=== PATIENT | female | born 1960 | race Caucasian/White ===

== ENCOUNTER → 2022-08-27 | Outpatient (CLI) | payer MEDICAID, SELFPAY ==
--- NOTE | 2022-08-27 | IMM_PTH ---
PATIENT: RESHMA HERRERA LOC: [facility] U#:[id number] AGE/SX: 62/F ROOM: RE08/27/[address]: Dr. Buddy Stokes MD : 1960 BED: DIS: 08/27/2022 SPEC #: [id number] RECD: 08/30/22 13:12 STATUS: SOURamya REQ #: [id number] LETICIA: 08/27/22 00:[address]: Buddy Stokes DEPT: IMMUNOHISTOCHEMISTRY RECD BY: Awilda Allen ENTERED: 08/30/22 13:15 SP TYPE: IMMUNO OTHR DR: Dr. Lester Bo MD Tissues: Right breast, NOS Procedures: CK8 (initial) SMA (add) CALPONIN-1 (add) CK5-6 (add) E-CAD (add) KI-67 (add) P53 (add) P40 (add) PHYSICIAN & INSTITUTION [address] [address] SPECIMEN INFORMATION: Tissue Source: Right breast Clinical Info: Microcalcifications right UOQ Specimen Number: [id number] #1 CPT code: 06724, 05693 x7 METHODOLOGY: Deparaffinized sections of prefer/formalin-fixed tissue or PAP/DQ stained slides are incubated with monoclonal/polyclonal antibodies/oligonucleotide probes. Localization is made via biotin free immunoperoxidase method. Appropriate controls are performed and reacted as expected. Results on target cell population are indicated in the following table: RESULTS: ANTIBODY / CLONE RESULT Block 1 CK8 (36qqbxS12) positive Calponin-1 (GV198R) positive Actin (1A4) positive CK5-6 (D5 & 1684) positive P40 (BC28) positive P53 (DO-7) negative Ki-67 (30-9) positive, 2% E-Cad (ECH-6) negative These tests were developed and their performance characteristics determined by [facility]. They may not have been cleared or approved by the U.S. Food and Drug Administration. The FDA has determined that such clearance or approval is not necessary. The above immunohistochemical/dualISH markers are ordered and reviewed by the Pathologist. INTERPRETATION: Right breast, stereotactic core biopsy: Consistent with lobular neoplasia. AM:minerva 09/01/2022
--- NOTE | 2022-08-27 11:25 | BRBX_PTH ---
PATIENT: RESHMA HERRERA LOC: [facility] U#:[id number] AGE/SX: 62/F ROOM: RE08/27/[address]: Dr. Buddy Stokes MD : 1960 BED: DIS: 08/27/2022 SPEC #: [id number] RECD: 08/27/22 11:56 STATUS: RAMON REQ #: [id number] LETICIA: 08/27/22 11:[address]: Buddy Stokes DEPT: SURGICAL PATHOLOGY RECD BY: Cata Dia ENTERED: 08/27/22 13:16 SP TYPE: BREAST BX OTHR DR: Dr. Lester Bo MD Tissues: Right breast, NOS Procedures: Surgery Specimen Level IV HEADER OPERATION: Right breast stereotactic needle core biopsy PRE-OP DIAGNOSIS: Microcalcifications right UOQ TISSUE SUBMITTED: Right breast ISCHEMIC TIME: 1 minute FIXATION TIME: 56 hours MICROSCOPIC DIAGNOSIS Right breast, stereotactic core biopsy: Lobular neoplasia with associated microcalcifications. See comment. AM:minerva 08/30/2022 COMMENT Immunohistochemistry ([id number]) supports the above diagnosis. Lobular neoplasia includes lobular carcinoma in situ and atypical lobular hyperplasia. In most foci, a blend of both are present. Foci of milly lobular carcinoma in situ measures approximately 3 millimeters in greatest dimension. / AM:minerva 09/03/2022 This case was reviewed and diagnosis discussed with Dr. Stokes on 09/02/2022. Case has been reviewed in consultation with Dr. Sandoval who concurs with the above diagnosis. IDC:SJ MICROSCOPIC DESCRIPTION Multifocal lobular neoplasia is present in sections of the biopsy. There is no evidence of invasive carcinoma. GROSS DESCRIPTION Received in fixative is one container labeled with the patient's name and designated right breast. The specimen consists of multiple irregular fragments of gong-yellow soft tissue that in aggregate measure 8.5 x 2.5 x 0.2 cm. The specimen is totally submitted in four cassettes. / AM:minerva 08/27/2022 TC:0 CPT: 59684
--- NOTE | 2022-08-27 13:35 | PCM.HP.BLA ---
History and Physical Date of Admission: 08/27/22 HISTORY AND PHYSICAL - BREAST COMPLAINT ? Abby Huerta 1960 ? ? REFERRING PHYSICIAN: Lester Bo MD ? CHIEF COMPLAINT: Mammographic microcalcification found on diagnostic imaging of breast (primary encounter diagnosis) ? HPI: The patient is a 62 year old female with a complaint of an abnormal mammogram. The patient had a mammogram with ultrasound on August 11, 2022 which demonstrated : IMPRESSION: SUSPICIOUS FINDING - BIOPSY SHOULD BE CONSIDERED The multiple clustered heterogeneous calcifications in the right breast are suspicious of malignancy. ?A stereotactic biopsy is recommended. ? The patient denies a history of breast masses. She does perform a self breast exam routinely. She notes no skin changes. She denies nipple discharge. She notes no axillary masses. She notes no family history of breast problems. She notes no significant breast trauma or breast difficulties in the past. ? ? The patient is being seen by me today at the request of Dr. Lester Bo MD for my opinion and advice regarding Mammographic microcalcification found on diagnostic imaging of breast (primary encounter diagnosis). ? PAST MEDICAL HISTORY PAST MEDICAL HISTORY Diagnosis Date ? Cataract ? ? Coronary artery disease ? ? Diabetes mellitus 2002 ? Diabetic eye exam ([facility]) 03/13/2012 ? [facility] ? Heart attack ([facility]) 05/2000 ? stent, cath again 2008, sees Cardiology in [place] ? High blood pressure ? ? High cholesterol ? ? Hyperlipidemia 05/12/2012 ? Hyperlipidemia 05/12/2012 ? Nonexudative age-related macular degeneration ? ? OU ? Obesity ? ? S/P gastric bypass ? ? Trace cataracts ? ? OU ? Type 2 diabetes mellitus without complication, without long-term current use of insulin ([facility]) 05/10/2017 ? ? PAST SURGICAL HISTORY PAST SURGICAL HISTORY Procedure Laterality Date ? *%INFUSION THERAPY ? 11/18/2016 #5 ? iron infusion ? ABDOMINAL SURGERY HX ? ? ? BREAST BIOPSY ? 2008 ? benign ? BREAST SURGERY HX ? ? ? CHG DELIVERY ? 08/1985 ? CHOLECYSTECTOMY HX ? ? ? 2011 ? COLONOSCOPY N/A 09/15/2016 ? MAC ? COLONOSCOPY ? 01/18/2022 ? repeat in 10 years ? DIAGNOSTIC ARTHROSCOPY SHOULDER +- SYNOVIAL BX Left 10/29/2020 ? Left shoulder open rotator cuff repair and open subacromial decompression ? EGD N/A 09/15/2016 ? MAC ? GASTRIC BYPASS HX ? 02/2012 ? HEART CATHETERIZATION ? 05/2000, 2009 ? 1 stent in 1999, cath 2008 no intervention, EECP done ? INCISE FINGER TENDON SHEATH Right 12/15/2017 ? Right middle trigger finger release ? INCISE FINGER TENDON SHEATH Right 07/31/2021 ? Right trigger thumb release ? INTRAVITREAL NJX PHARMACOLOGIC AGT SPX Left 02/12/2016 ? Intravitreal Injections ? S BALLOON,UTERINE ABLATION 50723 ? 08/2005 ? Uterine Balloon Therapy ? SURGERY (GENERAL SURGERY) CONSULT ? 11/1998-04/1992 ? DNC ? TUBAL LIGATION, ? CURRENT MEDICATIONS Current Outpatient Medications Medication Sig Dispense Refill ? ergocalciferol, vitamin D2, (VITAMIN D2 ORAL) Take 2,000 Units by mouth twice daily. ? ? ? Zinc 50 mg tab Take 50 mg by mouth once daily. ? ? ? sertraline (ZOLOFT) 100 mg tablet Take 1 tablet by mouth once daily. 90 tablet 3 ? oxybutynin ER (DITROPAN XL) 10 mg 24 hr tablet Take 1 tablet by mouth once daily. 90 tablet 3 ? clobetasol (TEMOVATE) 0.05 % cream Apply 1 application to affected area twice daily. 45 g 1 ? metoprolol tartrate, short acting, (LOPRESSOR) 25 mg tablet Take 1 tablet by mouth twice daily. 180 tablet 3 ? lisinopril (ZESTRIL, PRINIVIL) 5 mg tablet Take 1 tablet by mouth once daily. 90 tablet 1 ? simvastatin (ZOCOR) 10 mg tablet Take 1 tablet by mouth daily at bedtime. 90 tablet 1 ? isosorbide dinitrate (ISORDIL, SORBITRATE) 30 mg tablet Take 1 tablet by mouth as needed. 30 tablet 1 ? VIT C/VIT E/LUTEIN/MIN/OMEGA-3 (OCUVITE ORAL) Take 1 tablet by mouth twice daily. ? ? ? acetaminophen (TYLENOL) 325 mg tablet Take 650 mg by mouth as needed. ? ? ? Cranberry 1,000 mg cap Take 1,000 mg by mouth once daily. ? ? ? Aspirin 81 mg Tab Take 1 tablet by mouth once daily. Take with food. 30 tablet 11 ? ascorbic acid, vitamin C, (VITAMIN C) 500 mg tablet Take 500 mg by mouth once daily. ? ? 0 ? No current facility-administered medications for this visit. ? ? ALLERGIES: Iron, Macitentan, Macrobid [Nitrofurantoin Monohyd/M-Cryst], and Penicillins ? PERSONAL HISTORY: SOCIAL HISTORY Social History ? Tobacco Use ? Smoking status: Former ? ? Packs/day: 1.00 ? ? Years: 20.00 ? ? Pack years: 20.00 ? ? Types: Cigarettes ? ? Quit date: 09/12/1999 ? ? Years since quittin.9 ? Smokeless tobacco: Never Vaping Use ? Vaping Use: Never used Substance Use Topics ? Alcohol use: Yes ? ? Comment: every now and then (wine cooler) ? Drug use: Yes ? ? Comment: Infused honey ? FAMILY HISTORY: FAMILY HISTORY FAMILY HISTORY Problem Relation Age of Onset ? Heart Mother ? ? COPD Father ? ? Ischemic Heart Disease Father ? ? Detached Retina Father ? ? Glaucoma Father ? ? Cataract Father ? ? other (brain tumor) Father ? ? Hypertension Sister ? ? Hypertension Sister ? ? None Brother ? ? Diabetes Maternal Grandmother ? ? ? None Maternal Grandfather ? ? Heart Paternal Grandmother ? ? Hypertension Paternal Grandmother ? ? None Daughter ? ? thyroid ? None Daughter ? ? ? REVIEW OF SYMPTOMS: The review of systems data was entered by the nurse and reviewed by me ? Nursing Notes: Gretchen Rodriguez RN 08/17/2022 9:19 AM Signed REVIEW OF SYSTEMS: ?General:???The patient notes?fatigue, denies?weight loss, denies?weight gain, denies?feeling hot, and denies?feelings of cold. ?Eyes: ?The patient denies?glaucoma, denies?eye injury/surgery, wears?glasses or contacts. ?Ear/Nose/Throat: ?The patient denies?allergies, denies?hayfever, denies?ear infections, and denies?bloody noses. ?Cardiovascular: ?The patient denies?chest pain, denies?heart disease, notes?high blood pressure,notes?cardiac stent, denies?prior heart attack, denies?irregular heart beat, notes?high cholesterol, ?denies?poor circulation, denies?heart failure, other cardiac issues, denies?claudication, denies?cold feet, denies?peripheral arterial stent. ?Respiratory: ?The patient denies?tuberculosis, denies?pneumonia, denies?frequent cough, denies?pulmonary embolism, denies?shortness of breath, and denies?coughing up blood. ?Gastrointestinal: ?The patient denies?difficulty swallowing, denies?acid reflux, denies?ulcers, denies?vomiting, denies?jaundice/hepatitis, notes?gallbladder problems, denies?black or tarry stools, notes?hemorrhoids, denies?bleeding from rectum, denies?diverticulitis, denies?constipation, denies?diarrhea, denies?loss of stool control, and denies?hernias. ?Kidney/Bladder: ?The patient denies?kidney stones, denies?urine infections, and denies?bloody urine. ?Skin: ?The patient denies?a history of skin cancer, denies?bleeding/changing moles, and denies?a history of skin rash. ?Neurologic: ?The patient denies?a history of epilepsy/convulsions, notes?headaches, denies?head/spinal injuries, and denies?stroke/TIA. ?Psychiatric: ?The patient denies?psychiatric medications, notes?depression, and denies?voices, denies?substance abuse. ?Endocrine: ?The patient denies?thyroid disorders, notes?diabetes, and denies?hormonal problems. ?Hematologic: ?The patient denies?a history of bruising, denies?bleeding, and notes?anemia, denies?blood clots. ?Infections: ?The patient denies?a history of measles and mumps, denies?rheumatic fever, and denies?sexually transmitted diseases. ?Musculoskeletal: ?The patient notes?back pain/injury, denies?back problems, notes?sciatica, denies?knee/foot trouble, denies?arthritis, or denies?gout. ? ? When was patient's last Mammogram screening??2019?Last Colonoscopy: ?2017 ? Gretchen Rodriguez RN PHYSICAL EXAMINATION: ? General: The patient is 62 year old female, well nourished, well hydrated in no acute distress. The patient is oriented to time, place, and person. ? VITALS: Blood pressure 140/84, pulse 97, temperature 37 ?C (98.6 ?F), height 162.6 cm (5' 4), weight 103.1 kg (227 lb 6.4 oz), last menstrual period 08/21/2005, SpO2 97 %. Body mass index is 39.03 kg/m?. ? HEENT: Normal cephalic, ataumatic, pupils are equally round, sclera are anicteric, mucous membranes are moist, oropharynx is clear. Neck has no masses, asymmetry or lymphadenopathy. Thyroid is unremarkable. ? Respiratory: Clear to auscultation and percussion. Normal respiratory excursion and pattern. ? Cardiac: Examination is regular rate and rhythm. ? Abdominal exam: Soft, nontender, with no palpable masses. No hepatosplenomegaly. No palpable hernias. ? Rectal exam: exam deferred Extremities: no clubbing, cyanosis or edema. No adenopathy. ? Breast: Visual inspection reveals no retractions, nipple inversion, or skin changes. Palpation of the right breast reveals no dominant or suspicious masses, but multiple benign-feeling nodules. Palpation of the left breast reveals no dominant or suspicious masses, but multiple benign-feeling nodules. Axillary exam demonstrates no suspicious masses in either the left or right axilla. There is no nipple discharge expressed from either the left or right breast. ? LABORATORY VALUES: As Noted ? RADIOLOGIC STUDIES: As Noted ? Assessment IMPRESSION: Mammographic microcalcification found on diagnostic imaging of breast (primary encounter diagnosis) ? PLAN: I plan to perform a stereotactic biopsy of the right breast. The planned surgical procedure was discussed extensively with the patient. The risks, benefits, anticipated outcomes and possible complications were mentioned. My staff has also explained the procedure in understandable terms and the patient was given the option to take printed material concerning the planned procedure. The patient had the opportunity to ask questions concerning the planned procedure. The patient freely consents to the planned procedure. ? ? Diagnoses: (R92.0) Mammographic microcalcification found on diagnostic imaging of breast (primary encounter diagnosis) ? My findings have been communicated to Dr. Lester Bo MD via shared medical record. This note will be forwarded to Dr. Lester Bo MD. ? Return to Clinic: The patient is instructed to follow-up with me after the testing has been completed. ? Anticipated Surgical Procedure/ CPT Code: right VACCUUM NEEDLE STEREOTACTIC BREAST BIOPSY WITH SPECIMEN RADIOGRAPH - 01554 ? Anticipated Anesthetic: Local without anesthesia services ? Patient weight: Blood pressure 140/84, pulse 97, temperature 37 ?C (98.6 ?F), height 162.6 cm (5' 4), weight 103.1 kg (227 lb 6.4 oz), last menstrual period 08/21/2005, SpO2 97 %. BMI: Body mass index is 39.03 kg/m?. ? Planned antibiotic: none ? SCDs needed: No ? Airbrush Artist Photography Needed: No ? Pre Op Clearance: None ? Anticoagulation: No ? Diabetic: Yes ? Location: [facility] ? ? Buddy Stokes III, MD I have examined the patient and the H&P has been reviewed. There are no clinical changes since date of exam.
--- NOTE | 2022-08-27 13:36 | PCM.OPRPT ---
Problems Associated Problem List Diagnoses (1) Microcalcifications of the breast: Report of Operation Date of Procedure: 08/27/22 Pre-Operative Diagnosis: Microcalcifications right breast Post-Operative Diagnosis: Same Surgery/Procedure Performed:: right stereotactic breast biopsy Surgeon: Buddy Stokes ladle repairman: None Type of Anesthesia: Local Description of Procedure: Patient was brought into the stereotactic unit placed in the prone position on the fissure table the right breast was brought down through the opening. Lateral to medial view was obtained. Microcalcifications were identified ?10 degree views were obtained. Targeted on the microcalcifications prepped the breast with Betadine. I injected 1% lidocaine plain. Placed a needle in the prefire position took 2 more stereo views showing a microcalcifications to be adequately targeted. Fired the needle took 360 degrees circumferential biopsies. X-ray my specimen microcalcifications were identified in the specimen. Backed the needle off 7 mm placed a petite clip into the biopsy cavity. Sterile dressings were applied. In this process the clip fell out and I felt that it was not appropriate to place any more clips given how superficial it was. When I see her back in the office I may entertain the thought of placing a clip in the cavity at that time. Pressure was applied sterile dressings were applied then. Standard mammograms were obtained Admit VTE Documentation VTE Present on Admission: No VTE Mechan Device Prophylaxis: None VTE Pharm Prophylaxis ordered?: No Reason prophylaxis not ordered:: Treatment Not Indicated
== END | disposition home or self-care (01) ==
PROVIDERS: PCP Family Medicine; Referring Provider Surgery; Visit Provider Surgery
DX: R92.0 Mammographic microcalcification found on diagnostic imaging of breast (principal); E11.9 Type 2 diabetes mellitus without complications; E78.00 Pure hypercholesterolemia, unspecified; Z68.39 Body mass index [BMI] 39.0-39.9, adult; F17.210 Nicotine dependence, cigarettes, uncomplicated; E78.5 Hyperlipidemia, unspecified; I25.10 Atherosclerotic heart disease of native coronary artery without angina pectoris; E66.9 Obesity, unspecified; D49.2 Neoplasm of unspecified behavior of bone, soft tissue, and skin
CPT/HCPCS: 19081; 88305; 88341; 88342; J7050